=== PATIENT | male | born 1975 | race Caucasian/White ===

== ENCOUNTER 2017-09-24 13:20 | Emergency (ER) | payer BC, OTHER ==
[2017-09-24 13:25] VITALS: RESP 16
[2017-09-24] MEDS ORDERED: FLUORESCEIN SODIUM 1 MG STRIP OP ONE (15:59)
[2017-09-24] MEDS ORDERED: PROPARACAINE 0.5% 15 ML OPHT DROP OP ONE (15:59)
[2017-09-24] MEDS ORDERED: OFLOXACIN 0.3% SOLN PREPACK OPHT.BTL TAKEHOME ONE (16:25)
--- NOTE | 2017-09-24 16:32 | EDPHY ---
General - History Smoking Status: Former smoker Narrative: CHIEF COMPLAINT: Right eye foreign body HISTORY OF PRESENT ILLNESS: Patient complains of right eye foreign body. 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 He felt a small piece striking the right eye. He thought that he feels the wash it out and was able to do so. He then tried a sterile swab, but was also unable to do so. He has minimal pain and has no visual disturbance. He just feels the form sensation. His tetanus is up-to- date less than 2 years ago. He does not wear contacts or corrective lens. No other associated complaints or modifying factors. When I examine the patient he has been in the emergency department for nearly 2 hours and 40 minutes. He just arrived to his room when I examined him. REVIEW OF SYSTEMS: Ten systems reviewed and are negative unless otherwise noted in the HPI PCP: None SPECIALISTS: None PAST MEDICAL HISTORY: None PAST SURGICAL HISTORY: Orthopedic SOCIAL HISTORY: Nonsmoker. Occasional alcohol. No drug use. 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 Painless EOMs. There is a right conjunctival foreign body over the iris at 9 o'clock. Approximately 2 mm in width. There is some surrounding area of abrasion to the cornea prior to my examination. Proparacaine and fluorescein exam reveals a foreign body that was partially removed with an eye bur. There is either a portion of this left or very small hematoma. There may be a 2nd salt portion of foreign body just above this at the 11 o'clock position. No branching lesions. No vesicles. ENT, Mouth: Mucous membranes moist. Airway patent Neurological: A&O, nonfocal Skin: Warm and dry, no rash. No periorbital cellulitis. Extremities: Nontender, no pedal edema Psychiatric: Mood and affect normal DIFFERENTIAL DIAGNOSES: Including but not limited to conjunctival foreign body, globe injury, globe rupture, vitreous foreign body MDM: 4:00 p.m. Foreign body of the right eye conjunctiva. Vision is intact with 22/20 affected eye, 20/30 on the left eye and 20/20 with both eyes. 4:30 p.m. Right eye foreign body at 9 o'clock. I was able to remove a substantial portion of this with the eye bur. This was tolerated well without difficulty. Not clear if I have removed the entire foreign body or not. There was no rust ring on the slit-lamp examination. There was no branching lesion, but there was uptake to the right of the pupil in the right cornea. I will consult Ophthalmology for definitive care. 4:37 p.m. Case discussed with the on-call business education teacher Dr. Galan. He informed that he would be happy to see the patient today. The patient informed that he would be happy to drive to the [place] office where Dr. Galan is. Dr. Galan informed that he will wait for the patient if he is discharged shortly. Patient be discharged at this time with instructions to proceed directly to his office for definitive care. We are sending gentamicin ophthalmic ointment with him, and Dr. Galan will instruct him on how frequently he would like to apply this. We also discussed ED precautions. The patient is comfortable this plan and discharged home stable condition. Procedure: Foreign body removal from conjunctiva Indication: Right eye conjunctival foreign body Method: Sterile eye saeed Consent: Verbal Description: Proparacaine was administered topically to the right eye, 2 drops. Using a sterile eye bur and sterile glove, the foreign body was partially removed with the eye saeed. Tolerated well. No bleeding. No changes in vision. No complications. (Ry Trent) The patient was evaluated and managed by the physician seismic survey assistant. I have reviewed this chart and I agree with the findings and plan of care as documented , as indicated by my signature. I am the secondary supervising physician. ( Una Chatman) - Objective Vital Signs: Initial Vital Signs Temperature (C) 36.6 C 09/24/17 13:22 Heart Rate 68 09/24/17 13:22 Respiratory Rate 16 09/24/17 13:22 Blood Pressure 138/80 H 09/24/17 13:22 O2 Sat (%) 98 09/24/17 13:22 O2 Delivery Mode Room Air Allergies/Adverse Reactions: No Known Allergies Allergy (Unverified 08/09/15 21:16) Home Medications: Medication Instructions Recorded NK [No Known Home Meds] 09/24/17 Medications Given: Discontinued Medications Proparacaine HCl (Alcaine 0.5%) 1 drops OP EDNOW ONE Stop: 09/24/17 16:00 Last Admin: 09/24/17 16:12 Dose: 1 drop Departure - Departure Disposition: Home, Routine, Self-Care Clinical Impression: Foreign body in conjunctival sac, right eye, initial encounter Condition: Good Instructions: Eye Foreign Body (ED) Additional Instructions: 1. Proceed directly to the business education teacher's office 2. ED precautions as discussed Referrals: Liane Galan MD [Medical Doctor] - As per Instructions
[2017-09-24] MEDS ORDERED: GENTAMICIN 0.3% OINT PREPACK OPHT.OINT TAKEHOME ONE ×2 (16:40→16:41)
[2017-09-24 16:44] VITALS: BP 144/70; PULSE 81; TEMP 98.1; O2SAT 97
== END 2017-09-24 16:44 | disposition home or self-care (01) ==
PROC: 08C0XZZ Extirpation of Matter from Right Eye, External Approach (ICD-10-PCS; principal; 2017-09-24)
DX: T15.11XA Foreign body in conjunctival sac, right eye, initial encounter (principal); Z87.891 Personal history of nicotine dependence; W22.8XXA Striking against or struck by other objects, initial encounter